=== PATIENT | female | born 1985 | race African-American/Black ===

== ENCOUNTER 2016-06-04 09:06 | Emergency (ER) | payer OTHER ==
[~2016-06-04] VITALS: Ht 154.9 cm; Wt 77.1 kg
[~2016-06-04 09:06] MED LIST: NOHOMEMEDICATIONS
[2016-06-04] MEDS ORDERED: TRINATE TABLET1 TAB PO (09:32)
[2016-06-04 09:42] LABS: ABSOLUTE NEUTROPHILS 6.1 thou/uL (1.4-8.2); BASOPHILS 0.3 % (0.0-2.0); EOSINOPHILS 0.5 % (0.0-3.0); HEMOGLOBIN 9.5 gm/dL (12.0-15.0); LYMPHOCYTES 25.4 % (24.0-44.0); MCH 20.2 pg (26.0-34.0); MCHC 30.7 % (28.0-37.0); MCV 65.8 fL (80.0-100.0); PLATELET COUNT 351 thou/uL (150-400); POLYS 66.8 % (36.0-66.0); RBC 4.71 mil/uL (4.20-5.00); RDW 22.8 % (10.5-14.5); WBC 9.1 thou/uL (4.0-11.0)
[2016-06-04 09:59] LABS: CALCIUM 8.9 mg/dL (8.5-10.1); CREATININE 0.8 mg/dL (0.6-1.3); MANUAL DIFF NO; POTASSIUM 3.7 mmol/L (3.5-5.1)
[2016-06-04 10:05] LABS: ALBUMIN 3.5 g/dL (3.4-5.0); TOTAL BILIRUBIN 0.2 mg/dL (<0.1-1.0); TOTAL PROTEIN 7.8 g/dL (6.4-8.2)
[2016-06-04 11:02] LABS: URINE BILIRUBIN NEGATIVE (Negative); URINE BLOOD NEGATIVE (Negative); URINE COLOR YELLOW; URINE GLUCOSE-RANDOM* NEGATIVE (Negative); URINE KETONES NEGATIVE (Negative); URINE LEUKOCYTES-REFLEX TRACE (Negative); URINE PROTEIN (DIPSTICK) NEGATIVE (Negative); URINE SPECIFIC GRAVITY 1.025 (1.003-1.035); URINE UROBILINOGEN 0.2 E.U./dl (0.2-1.0)
[2016-06-04] MEDS ORDERED: MOBIC15 MG PO (11:12)
[2016-06-04 11:56] VITALS: BP 107/73
[2016-06-04 12:33] LABS: HYPOCHROMASIA 1+; POLYCHROMASIA SLIGHT; TARGET CELLS 1+
[2016-06-04 12:34] LABS: ANISOCYTOSIS 1+; MICROCYTES 1+; OVALOCYTES FEW
[2016-06-13 13:42] LABS: CHLAMYDIA TRACHOMATIS-PCR Negative
[2016-06-13 13:43] LABS: NEISSERIA GONORRHEA-PCR Negative
== END 2016-06-04 12:04 | disposition home or self-care (01) ==
LOC: ER 09:06
PROVIDERS: Physician Assistant
DX: O03.9 Complete or unspecified spontaneous abortion without complication (principal); R10.2 Pelvic and perineal pain; Z3A.00 Weeks of gestation of pregnancy not specified